=== PATIENT | male | born 1990 | race Caucasian/White ===

== ENCOUNTER 2017-03-13 02:16 | Emergency (ER) | payer SELFPAY ==
[~2017-03-13] VITALS: Ht 167.6 cm; Wt 90.8 kg
[2017-03-13 05:31] VITALS: BP 110/63
== END 2017-03-13 05:31 | disposition home or self-care (01) ==
LOC: ED 02:16
DX: S01.112A Laceration without foreign body of left eyelid and periocular area, initial encounter (principal); S02.32XA Fracture of orbital floor, left side, initial encounter for closed fracture; Z88.0 Allergy status to penicillin; Y08.89XA Assault by other specified means, initial encounter; Y93.89 Activity, other specified; Y99.8 Other external cause status; Y92.89 Other specified places as the place of occurrence of the external cause